=== PATIENT | male | born 1985 | race Caucasian/White ===

== ENCOUNTER → 2025-07-07 | Emergency (ER) | payer SELFPAY ==
[~2025-07-07] VITALS: Ht 177.8 cm
[2025-07-07 18:28] VITALS: BP 141/97; PULSE 98; RESP 16; TEMP 99.8
--- NOTE | 2025-07-07 18:39 | ERN ---
ED Note History of Present Illness Stated Complaint: LEFT SIDE NUMBNESS X 3 DAYS Chief Complaint: Numbness Time Seen by MD: 18:31 Dictation: PATIENT IS A 40-YEAR-OLD MALE COMING IN WITH LEFT FACIAL AND UPPER AND LOWER EXTREMITY NUMBNESS AND TINGLING WITH A HEADACHE HE HAS HAD FOR THREE DAYS. NO NAUSEA NO VOMITING DIARRHEA NIH SCORE IS 0 IN TRIAGE CRANIAL NERVES INTACT AND GAIT IS STEADY. NO PRIMARY CARE DOCTOR. STATES HE JUST MOVED HERE FROM [place] TO [place] TO COUSIN AND THEN FOUND OUT HIS COUSIN WAS GONE SO NOW HE IS LOOKING FOR A HOME IN [facility]. PATIENT NOTED IN THE ER WAITING ROOM TO BE PULLING A LARGE MART[employer]NE[employer] CASE WITH HIS LEFT HAND AND HOLDING HIS PHONE TO HIS EAR ON HIS RIGHT HAND. GAIT IS STEADY WHEN HE WAS CALLED FOR CT SCAN. Allergies: Coded Allergies: Sulfa (Sulfonamide Antibiotics) (Unverified Allergy, Unknown, 07/07/25) ondansetron (Unverified Allergy, Unknown, 07/07/25) Past Medical History Past Medical History: Alcoholism, Anemia Additional Past Medical Hx: BORN W/ ONE KIDNEY Surgical History: Appendectomy, Other Surgical History Other: SHOULDER RN Note Reviewed/Agreed w/PFSH: Yes Review of System Dictation CONSTITUTIONAL: NEGATIVE EXCEPT FOR HPI HEAD/FACE: NEGATIVE EXCEPT FOR HPI EENT: NEGATIVE EXCEPT FOR HPI RESPIRATORY: NEGATIVE EXCEPT FOR HPI GASTROINTESTINAL/ABDOMINAL: NEGATIVE EXCEPT FOR HPI GENITOURINARY: NEGATIVE EXCEPT FOR HPI MUSCULOSKELETAL: NEGATIVE EXCEPT FOR HPI INTEGUMENTARY: NEGATIVE EXCEPT FOR HPI NEUROLOGICAL/PSYCH: NEGATIVE EXCEPT FOR HPI LEFT-SIDED NUMBNESS AND TINGLING THREE DAYS NIH IS 0 HEMATOLOGIC/LYMPHATIC: NEGATIVE EXCEPT FOR HPI ALL SYSTEMS NEGATIVE, EXCEPT NOTED ABOVE. 13 POINT REVIEW OF SYSTEMS ASSESSED AND ALL NEGATIVE EXCEPT FOR ABOVE. Initial Vital Sign VS Vital Signs Date Time Temp Pulse Resp B/P (MAP) Pulse Ox O2 Delivery O2 Flow Rate FiO2 07/07/25 18:28 99.9 98 16 141/97 100 Room Air 0 Physical Exam Dictation VITAL SIGNS REVIEWED GENERAL APPEARANCE: ALERT, ORIENTED X 3, NO ACUTE DISTRESS, WELL DEVELOPED, NOURISHED. HEAD AND FACE: NON-TRAUMATIC. EYES: PERRL, PINK CONJUNCTIVAS, EYELID NO TRAUMA, ANTERIOR CHAMBER WITH ARCUS SENILIS. EARS: PINNAS INTACT AND NO SIGNS OF TRAUMA OR ERYTHEMA EAR CANALS CLEAR AND NO DISCHARGE TM NO ERYTHEMA NOSE: NO DISCHARGE, NO BLEEDING. OROPHARYNX: MOUTH NORMAL, TONGUE PINK, PHARYNX CLEAR,NO ERYTHEMA, TONSILS NO EXUDATES, NO ABSCESSES NOTED, MUCOUS MEMBRANE MOIST NECK: SUPPLE, NON-TENDER, NO THYROMEGALY, NO MASSES, NO JVD, NO BRUITS BREAST:DEFERRED CHEST:NO TENDERNESS, NO CREPITUS, NO PARADOXICAL MOVEMENT, NO RETRACTIONS LUNGS:CLEAR, WELL-VENTILATED, SYMMETRIC, NO RALES, NO WHEEZING, NO RHONCHI, NO STRIDOR, GOOD BREATH SOUNDS BILATERALLY HEART: REGULAR RATE, REGULAR RHYTHM, NO MURMUR, NO GALLOPS VASCULAR: NO PERIPHERAL EDEMA, ABDOMEN: SOFT, POSITIVE BOWEL SOUNDS, NONDISTENDED, NO GUARDING, NONTENDER, NO REBOUND, NO MASSES NO HEPATOMEGALY, NO SPLENOMEGALY, NO ESPINOZA'S SIGN, NO HERNIAS. RECTAL: DEFERRED GENITAL: DEFERRED NEUROLOGICAL: NORMAL SPEECH, MOTOR FUNCTION INTACT, SENSORY FUNCTION INTACT NIH IS 0 MUSCULOSKELETAL: NECK NONTENDER, FULL RANGE OF MOTION, BACK NONTENDER, FULL RANGE OF MOTION, EXTREMITIES: NONTENDER, FULL RANGE OF MOTION SKIN: COLOR PINK, DRY, NO TURGOR, NO RASH, NO LACERATIONS, NO ABRASIONS, NO CONTUSIONS. LYMPHATIC: DEFERRED Results (Laboratory/Radiology) Laboratory/Radiology ORDERING PHYSICIAN: EILEEN BENOIT NP PROCEDURE: HEAD WO - CT HEAD/BRAIN W/O CONTRAST EXAM: CT Head Without IV contrast. CLINICAL HISTORY: LEFT ARM NUMBNESS AND TINGLING WITH A HEADACHE THREE DAYS. TECHNIQUE: Axial computed tomography images of the head/brain without intravenous contrast. COMPARISON: None provided. FINDINGS: BRAIN: No acute bleed or infarct. VENTRICLES: No hydrocephalus. ORBITS: The orbits are unremarkable. SINUSES AND MASTOIDS: The paranasal sinuses and mastoid air cells are clear. BONES: No fracture. SOFT TISSUES: Unremarkable. MISCELLANEOUS: 4.5 x 2.5 x 2.5 cm arachnoid cyst in the left posterior fossa. IMPRESSION: 1. No acute bleed or infarct. 2. 4.5 x 2.5 x 2.5 cm arachnoid cyst in the left posterior fossa. /[facility] Reviewed?: Yes ED Course ED Course Orders Procedure Category Date Status Time Ct Head/Brain W/O CT 07/07/25 Resulted Contrast 18:37 Acetaminophen 500mg PHA 07/07/25 Complete Tab (Tylenol 500mg T 19:00 Covid19 (Sars Antigen LAB 07/07/25 Logged Rapid) 19:57 Influenza Type A & B, LAB 07/07/25 Logged Rapid 19:57 Rapid (Group A Strep) LAB 07/07/25 Logged 19:57 Current Medications Medications (Trade) Dose Ordered Sig/Dixie Route PRN Reason Start Time Stop Time Status Last Admin Dose Admin Acetaminophen (TYLenol 500MG TAB) 1,000 mg ONCE ONCE PO 07/07/25 19:00 07/07/25 19:01 DC Vital Signs Date Time Temp Pulse Resp B/P (MAP) Pulse Ox O2 Delivery O2 Flow Rate FiO2 07/07/25 18:28 99.9 98 16 141/97 100 Room Air 0 1950/VIDEO IMAGES SENT TO DR. Jackson/neurosurgeon. He said the arachnoid cyst has been there since probably and that this would not be the cause of the patient's complaints. Suggested neurologic consultation if symptoms persisted. Medical Decision Making [facility] 215/PATIENT WAS CALLED FROM WAITING ROOM AND I WAS ADVISED BY BUSINESS OFFICE HE LEFT AGAINST MEDICAL ADVICE WITHOUT SIGNING UP. HE WAS DRAGGED IN HIS MART[employer]NE[employer] CASE WITH HIM. DX & DISP Disposition: AMA Departure Impression: Primary Impression: Arachnoid cyst Additional Impression: Paresthesia and pain of left extremity Condition: Stable Time of Disposition: 21:57 I have reviewed the case, and I agree with, Diagnosis and Plan EILEEN BENOIT NP Jul 07, 2025 18:39
--- NOTE | 2025-07-07 19:15 | HMCIMG ---
EXAM: CT Head Without IV contrast. CLINICAL HISTORY: LEFT ARM NUMBNESS AND TINGLING WITH A HEADACHE THREE DAYS. TECHNIQUE: Axial computed tomography images of the head/brain without intravenous contrast. COMPARISON: None provided. FINDINGS: BRAIN: No acute bleed or infarct. VENTRICLES: No hydrocephalus. ORBITS: The orbits are unremarkable. SINUSES AND MASTOIDS: The paranasal sinuses and mastoid air cells are clear. BONES: No fracture. SOFT TISSUES: Unremarkable. MISCELLANEOUS: 4.5 x 2.5 x 2.5 cm arachnoid cyst in the left posterior fossa. IMPRESSION: 1. No acute bleed or infarct. 2. 4.5 x 2.5 x 2.5 cm arachnoid cyst in the left posterior fossa. /[place]
== END ==
LOC: EDH 18:26
DX: G93.0 Cerebral cysts (principal); R20.2 Paresthesia of skin; M79.642 Pain in left hand; M79.605 Pain in left leg; F10.20 Alcohol dependence, uncomplicated; Z88.2 Allergy status to sulfonamides; Z90.49 Acquired absence of other specified parts of digestive tract
CPT/HCPCS: 70450; 99284